=== PATIENT | female | born 1995 | race African-American/Black ===

== ENCOUNTER 2020-01-02 10:12 | Emergency (ER) | payer SELFPAY ==
[2020-01-02 10:21] VITALS: BP 141/97
[2020-01-02 10:40] LABS: ABSOLUTE LYMPHOCYTES (AUTO) 0.9 10^3/uL (0.5-4.7); ABSOLUTE MONOCYTES (AUTO) 0.4 10^3/uL (0.1-1.4); ABSOLUTE NEUT (AUTO) 7.8 10^3/uL (1.7-8.2); BASOPHILS % (AUTO) 0.3 % (0-2); HEMATOCRIT 41.3 % (36.0-47.0); HEMOGLOBIN 14.2 g/dL (12.0-15.5); LYMPHOCYTES % (AUTO) 9.7 % (13-45); MEAN CORPUSCULAR HEMOGLOBIN 35.1 pg (27.0-33.4); MEAN CORPUSCULAR HGB CONC 34.4 g/dL (32.0-36.0); MEAN CORPUSCULAR VOLUME 102 fl (80-97); MONOCYTES % (AUTO) 4.7 % (3-13); PLATELET COUNT 261 10^3/uL (150-450); RED BLOOD COUNT 4.05 10^6/uL (3.72-5.28); RED CELL DISTRIBUTION WIDTH 12.7 % (11.5-14.0); SEGMENTED NEUTROPHILS % (AUTO) 85.3 % (42-78); TOTAL CELLS COUNTED % (AUTO) 100 %; WHITE BLOOD COUNT 9.2 10^3/uL (4.0-10.5)
[2020-01-02 10:42] LABS: ALBUMIN 5.1 g/dL (3.5-5.0); ALKALINE PHOSPHATASE 73 U/L (38-126); ANION GAP 10 (5-19); ASPARTATE AMINO TRANSFERASE 30 U/L (14-36); BILIRUBIN,TOTAL 0.8 mg/dL (0.2-1.3); BLOOD UREA NITROGEN 8 mg/dL (7-20); CALCIUM 9.8 mg/dL (8.4-10.2); CARBON DIOXIDE 22 mmol/L (22-30); CHLORIDE 107 mmol/L (98-107); GLUCOSE 119 mg/dL (75-110); TOTAL PROTEIN 8.4 g/dL (6.3-8.2)
[2020-01-02] MEDS ORDERED: NORMAL SALINE 250 ML IV ONE (10:42)
[2020-01-02] MEDS ORDERED: ONDANSETRON HCL INJ/PF 4 MG/2 ML SDV IV ONE (10:42)
--- NOTE | 2020-01-02 11:44 | RADIOLOGY REPORT (SQ) ---
EXAM DESCRIPTION: CT HEAD COMBO IMAGES COMPLETED DATE/TIME: 01/02/2020 11:25 am REASON FOR STUDY: headache COMPARISON: None. TECHNIQUE: Axial images acquired through the brain without and with intravenous contrast. Images re viewed with bone, brain and subdural windows. Images stored on PACS. All CT scanners at this facility use dose modulation, iterative reconstruction, and/or weight based d osing when appropriate to reduce radiation dose to as low as reasonably achievable (ALARA). [facility]: Dose Right [facility]: CareDose [facility]: Dose Right [facility]: Teradose 4D [facility]: [employer] CONTRAST TYPE AND DOSE: contrast/concentration: Isovue 350.00 mmol/ml; Total Contrast Delivered: 50. 0 ml; Total Saline Delivered: 50.0 ml RENAL FUNCTION: GFR > 60. RADIATION DOSE: CT Rad equipment meets quality standard of care and radiation dose reduction techniq ues were employed. CTDIvol: 53.2 mGy. DLP: 1822 mGy-cm.. LIMITATIONS: Beam hardening artifact from aneurysm clips at the skullbase. FINDINGS: VENTRICLES: Normal size and contour. CEREBRUM: No hemorrhage identified. No midline shift. There is focal encephalomalacia -hypodensity a natasha the region of the aneurysm clips in the right inferior frontal lobe and the anterior aspect of t he right basal ganglia. No enhancing lesions. CEREBELLUM: No masses. No hemorrhage. No alteration of density. No evidence for acute infarction. No enhancing lesions. EXTRA-AXIAL SPACES: No fluid collections. No enhancing lesions. ORBITS AND GLOBE: No intra- or extraconal masses. Normal contour of globe without masses. CALVARIUM: No fracture. PARANASAL SINUSES: No fluid or mucosal thickening. SOFT TISSUES: No mass or hematoma. OTHER: No other significant finding. IMPRESSION: No hemorrhage identified. No midline shift. There is focal encephalomalacia -hypodensity above the region of the aneurysm clips in the right inferior frontal lobe and the anterior aspect of the right basal ganglia.No enhancing lesions. EVIDENCE OF ACUTE STROKE: NO. TECHNICAL DOCUMENTATION: JOB ID: [id number] [place]-[id number] Quality ID # [id number]: Final reports with documentation of one or more dose reduction techniques (e.g., Au tomated exposure control, adjustment of the mA and/or kV according to patient size, use of iterative reconstruction technique) 2010 [employer]- All Rights Reserved Reading location - IP/workstation name: [email or web address]
[2020-01-02 13:05] LABS: APPEARANCE,URINE CLEAR; BILIRUBIN,URINE NEGATIVE (NEGATIVE); COLOR,URINE YELLOW; GLUCOSE, URINE NEGATIVE (NEGATIVE); KETONES,URINE 80 mg/dL (NEGATIVE); LEUKOCYTE ESTERASE,URINE NEGATIVE (NEGATIVE); NITRITE,URINE NEGATIVE (NEGATIVE); PROTEIN,URINE 30 mg/dL (NEGATIVE); URINE SPECIFIC GRAVITY 1.033; UROBILINOGEN,URINE NEGATIVE mg/dL (<2.0)
--- NOTE | 2020-01-02 13:12 | ER Document Report ---
Entered by SHANNAN CARRANZA SCRIBE 01/02/20 1237 Acting as scribe for:KAREN GEE MD ED General - General Chief Complaint: Nausea/Vomiting Stated Complaint: NAUSEA/VOMITING Time Seen by Provider: 01/02/20 10:18 Information source: Patient Notes: This 24 year old female patient presents to the emergency department today with complaints of nausea and vomiting. Patient states she has been traveling from [facility] to [place], with a stop in [place]. Patient states she arrived in [place] yesterday and drank multiple glasses of wine last night. Patient states this morning she woke up with nausea, vomiting, and a headache. Patient reports a history of a cerebral aneurysm in 2014, which is why she called for EMS with the symptom of a headache. - Related Data Allergies/Adverse Reactions: No Known Allergies Allergy (Verified 01/02/20 10:21) Past Medical History - General Information source: Patient - Social History Smoking Status: Unknown if Ever Smoked Frequency of alcohol use: None Drug Abuse: None Family History: Reviewed & Not Pertinent Neurological Medical History: Reports: Other - Cerebral aneurysm 2015 Review of Systems - Review of Systems Constitutional: No symptoms reported EENT: No symptoms reported Cardiovascular: No symptoms reported Respiratory: No symptoms reported Gastrointestinal: See HPI, Nausea, Vomiting Genitourinary: No symptoms reported Female Genitourinary: No symptoms reported Musculoskeletal: No symptoms reported Skin: No symptoms reported Hematologic/Lymphatic: No symptoms reported Neurological/Psychological: See HPI, Headaches -: Yes All other systems reviewed and negative Physical Exam - Vital signs Vitals: Resp BP Pulse Ox 18 141/97 H 100 01/02/20 10:12 01/02/20 10:12 01/02/20 10:12 - General General appearance: Appears well, Alert - HEENT Head: Normocephalic, Atraumatic Eyes: Normal Extraocular movements intact: Yes Pupils: PERRL - Respiratory Respiratory status: No respiratory distress Chest status: Nontender Breath sounds: Normal Chest palpation: Normal - Cardiovascular Rhythm: Regular Heart sounds: Normal auscultation Murmur: No - Abdominal Inspection: Normal - Soft Distension: No distension Bowel sounds: Normal Tenderness: Nontender - Extremities General upper extremity: Normal inspection. No: Edema General lower extremity: Normal inspection. No: Edema - Neurological Neuro grossly intact: Yes Cognition: Normal Orientation: AAOx4 Speech: Normal - Psychological Associated symptoms: Normal affect, Normal mood - Skin Skin Temperature: Warm Skin Moisture: Dry Skin Color: Normal Course - Re-evaluation Re-evalutation: 01/02/20 12:55 Patient resting comfortably not showing any signs of distress at this time. States her nausea and vomiting has resolved her headache is resolved as well. - Vital Signs Vital signs: Temp Pulse Resp BP Pulse Ox 98.2 F 85 14 156/107 H 100 01/02/20 10:20 01/02/20 10:20 01/02/20 10:20 01/02/20 10:20 01/02/20 10:20 01/02/20 12:56 Vital signs stable - Laboratory Result Diagrams: 01/02/20 10:15 01/02/20 10:15 Laboratory results interpreted by me: 01/02/20 01/02/20 10:15 10:15 MCV 102 H MCH 35.1 H Lymph % (Auto) 9.7 L Seg Neutrophils % 85.3 H Glucose 119 H Total Protein 8.4 H Albumin 5.1 H - Diagnostic Test Radiology reviewed: Image reviewed, Reports reviewed Radiology results interpreted by me: 01/02/20 13:08 CT scan of head with contrast shows no acute process patient has aneurysmal clips from a previous aneurysmal bleed in the past. Patient has encephalomalacia and scarring noted in the area of her previous surgery. 01/02/20 13:08 No new stroke Discharge - Discharge Clinical Impression: Nausea & vomiting, Headache Condition: Stable Disposition: HOME, SELF-CARE Instructions: Vomiting ([facility]) Additional Instructions: You had nausea and vomiting this morning along with a headache. It may be related to just the traveling that you just recently had completed. He also mentioned that you drink a couple glasses of wine last evening. Inasmuch as it will have fever and chills with this still concern for COVID-19 inasmuch as you have traveled many states through couple airports and now here with that the symptoms of nausea vomiting and a headache. You were offered COVID-19 test to be completed and you declined. However we do still recommend highly that you self quarantine yourself for the next 14 days in order to be certain that you are not transmitting in caring the COVID-19 virus. There are no new prescriptions inasmuch as you said you really did not have any further nausea and not interested in any prescriptions. I personally performed the services described in the documentation, reviewed and edited the documentation which was dictated to the scribe in my presence, and it accurately records my words and actions.
== END 2020-01-02 13:40 | disposition home or self-care (01) ==
LOC: ER 10:12
DX: R11.2 Nausea with vomiting, unspecified (principal); R51 Headache
CPT/HCPCS: 99284; 96361; 96374; 36415; 85025; 80053; 81001; 70470; J2405; J7050